=== PATIENT | female | born 1980 | race Caucasian/White ===

== ENCOUNTER → 2019-05-07 13:51 | Outpatient (CLI) | payer BC | END | disposition home or self-care (01) | LOC: D.HCCECHO 13:51 | PROVIDERS: ATTEND Internal Medicine Cardiovascular Disease | DX: I10 Essential (primary) hypertension (principal) ==

== ENCOUNTER → 2019-06-11 10:00 | Outpatient (CLI) | payer BC | END | disposition home or self-care (01) | LOC: D.HCCARDIO 05-28 11:30 | PROVIDERS: ATTEND Internal Medicine Cardiovascular Disease | DX: R06.02 Shortness of breath (principal) ==

== ENCOUNTER 2019-07-03 11:09 | Outpatient (CLI) | payer BC ==
[~2019-07-03] VITALS: Ht 167.6 cm; Wt 95.5 kg
--- NOTE | ~2019-07-03 | HEMODYNAMI ---
PATIENT:HARPREET RODRIGUEZ MEDICAL RECORD: [id number] : 78 LOCATION:[facility] ADMISSION DATE: 07/03/19 Generatedon:07/03/201914:36 Patient name: HARPREET RODRIGUEZ Patient #: [id number] SSN: [id number] : 1980 Date of study: 07/03/2019 Page: Of Hemodynamic Procedure Report Patient Data Patient Demographics Procedure consent was obtained First Name: HARPREET Gender: Female Last Name: MICHAEL : 1980 Patient #: [id number] Age: 38 year(s) Race: SSN: [id number] Additional ID: [id number] Contact details Address: [address] [place] [address] State: [place] [facility] Zip code: [address] Past Medical History Allergies Allergen Reaction Date Comments Reported Other allergy 07/03/2019 sulfar cefdinir Admission Admission Data Admission Date: 07/03/2019 Admission Time: 11:09 Arrival Date: 07/03/2019 Arrival Time: 0:00 Insurance Payor: Private health insurance Height (in.): 95.4 BSA: 2.42 (m2) Height (cm.): 242.32 BMI: 12.95 (kg/m2) Weight (lbs.): 167.64 Weight (kg.): 76.04 Lab Results Lab Result Date: 07/03/2019 Lab Result Time: 0:00 Biochemistry Name Units Result Min Max BUN mg/dl 14 --(--*-)-- 7 18 Creatinine mg/dl 0.9 --(-*--)-- 0.6 1.3 eGFR ml/min 73.33140 *-(----)-- 90 120 NONAFRICAN CBC Name Units Result Min Max Hematocrit % 40.7 -*(----)-- 42 54 Hemoglobin g/dl 13.2 -*(----)-- 13.5 17.5 Procedure Procedure Types Cath Procedure Diagnostic Procedure [facility] w/Coronaries Procedure Description Procedure Date Procedure Date: 07/03/2019 Procedure Start Time: 14:17 Procedure End Time: 14:35 Procedure Staff Name Function Yaron Knight MD Performing Physician Andree Calderon RT Monitor Jimmie Arevalo RN Nurse Daphne Heller RT Scrub Colton Moreno RT Scrub Indication Pulmonary hypertension Procedure Data Cath Procedure Fluoroscopy Diagnostic fluoroscopy Total fluoroscopy Time: 2 time: 2 min min Diagnostic fluoroscopy Total fluoroscopy dose: 367 dose: 367 mGy mGy Contrast Material Contrast Material Type Amount (ml) Isovue 370 60 Entry Location Entry Primary Successful Side Size Upsize Upsize Entry Closure Succes sful Closure Location (Fr) 1 (Fr) 2 (Fr) Remarks Device Remarks Femoral Right 5 Fr Exoseal artery Estimated blood loss: 5 ml Diagnostic catheters Device Type Used For End Catheter Placement MULTIPACK JL 4.0 5Fr Procedure catheter MULTIPACK 3DRC 5Fr Procedure catheter MULTIPACK Pigtail 5 Fr Procedure catheter Procedure Complications No complications Procedure Medications Medication Administration Route Dosage 0.9% NaCl I.V. 100 ml/hr Oxygen etCO2 Nasal cannula 2 l/min Heparin Flush Bag added to field 2 bags (1000units/500ml NS) Lidocaine 2% added to field 20 Versed I.V. 2 mg Fentanyl I.V. 100 mcg Versed I.V. 2 mg Fentanyl I.V. 100 mcg Versed I.V. 2 mg Versed I.V. 2 mg Versed I.V. 2 mg Hemodynamics Rest BSA: 2.42 (m2) HGB: 13.2 (g/dl) O2 Consumption: Estimated: 292.03 (ml/min) O2 Co nsumption indexed: Estimated:120.67 (ml/min/m) Heart Rate: 119 (bpm) Pressure Samples Time Site Value (mmHg) Purpose Heart Use Rate(bpm) 14:26 AO 130/-6(48) Snapshot 114 14:27 LV 122/-22,-6 Snapshot 120 14:27 AO 118/61(85) Pullback 110 14:27 LV 126/-19,-4 Pullback 110 Gradients Valve Time Site 1 Site 2 Mean SEP/DFP Peak To Heart Use (mmHg) (sec/min) Peak Rate (mmHg) (bpm) Aortic 14:27 LV AO 22 10 8 110 126/-19,-4 118/61(85) Calculations Valve P-P Mean Valve Index Valve Source Name Gradient Area Flow (cm2) Aortic 8 22 8 22 Snapshots Pre Cath Intra NCS Post Cath Vital Signs Time Heart Resp SPO2 etCO2 NIBP (mmHg) Rhythm Pain Sedation Rate (ipm) (%) (mmHg) Status Level (bpm) 14:03:00 129 18 100 0 158/100(142) NSR 0 (11) 10(A) , No pain 14:07:18 126 14 100 22 141/97(111) NSR 0 (11) 10(A) , No pain 14:11:35 126 19 100 33.4 146/88(108) NSR 0 (11) 10(A) , No pain 14:15:48 117 19 100 35 136/84(99) NSR 0 (11) 10(A) , No pain 14:19:58 100 18 98 37.2 140/77(95) NSR 0 (11) 10(A) , No pain 14:24:12 108 20 98 35 132/69(92) NSR 0 (11) 10(A) , No pain 14:28:20 116 21 100 33.4 127/74(96) NSR 0 (11) 10(A) , No pain 14:32:34 100 14 99 37.2 124/79(96) NSR 0 (11) 10(A) , No pain Medications Time Medication Route Dose Verified Delivered Reason Notes Eff ectiveness by by 14:08:37 0.9% NaCl I.V. 100 Jimmie Jimmie Per ml/hr Mickey Arevalo physician RN RN 14:09:22 Oxygen etCO2 2 Jimmie Jimmie for low 02 Nasal l/min Lorigan Lorigan sats cannula RN RN 14:09:34 Heparin Flush added 2 Jimmie Jimmie used for Bag to bags Lorigan Lorigan procedure (1000units/500ml field RN RN NS) 14:09:44 Lidocaine 2% added 20ml Jimmie Jimmie for local to vial Lorigan Lorigan anesthetic field RN RN 14:16:48 Versed I.V. 2 mg Jimmie Jimmie for Lorigan Lorigan sedation RN RN 14:16:56 Fentanyl I.V. 100 Jimmie Jimmie for mcg Lorigan Lorigan sedation RN RN 14:18:29 Versed I.V. 2 mg Jimmie Jimmie for Lorigan Lorigan sedation RN RN 14:18:34 Fentanyl I.V. 100 Jimmie Samuel for mcg Lorigan Lorigan sedation RN RN 14:19:56 Versed I.V. 2 mg Jimmieadalberto Samuel for Lorigan Lorigan sedation RN RN 14:20:23 Versed I.V. 2 mg Jimmie Jimmie for Lorigan Lorigan sedation RN RN 14:23:37 Versed I.V. 2 mg Jimmie Jimmie for Lorigan Lorigan sedation RN cashier ticket selling Log Time Note 13:51:58 Informed consent obtained and on chart 13:53:19 Indication : Pulmonary hypertension 13:53:26 Jimmie Arevalo RN sent for patient. Start room use. 13:53:30 Procedure Status Elective Heart Cath (OP). 13:54:21 Time tracking: Regular hours (M-F 7:00 - 5:00) 13:54:27 Plan of Care:Hemodynamics will remain stable., Cardiac rhythm will remain stable., Comfort level will be maintained., Respiratory function will remain adequate., Patient/ family verbilizes understanding of procedure., Procedure tolerated without complication., Recovers from procedure without complications.. 13:55:37 H&P Date Dictated: 07/03/2019 Within 30 days and on chart.. 13:55:40 Family in waiting room. 13:55:42 Patient NPO since Midnight. 13:55:48 Patient allergic to No known allergies 13:56:36 Lab Result : BUN 14 mg/dl 13:56:36 Lab Result : Creatinine 0.9 mg/dl 13:56:36 Lab Result : eGFR NONAFRICAN 73.42106 ml/min 13:56:36 Lab Result : Hematocrit 40.7 % 13:56:36 Lab Result : Hemoglobin 13.2 g/dl 13:56:49 Patient received from Pre/Post Procedure Room to CCL 1 Alert and oriented. Tansferred to table in Supine position. 13:56:50 Warm blankets applied, and darcy hugger turned on for patient comfort. 13:56:51 Correct patient and procedure confirmed by team. 13:56:54 ECG and BP/O2 sat monitors applied to patient. 13:56:59 Pre-procedure instructions explained to patient. 13:56:59 Pre-op teaching completed and patient verbalized understanding. 13:57:02 Is the patient allergic to Iodine/contrast media? No. 13:59:20 Risk of Mortality: .1 13:59:23 Risk of blood transfusion: .2 13:59:25 Risk of ETELVINA: .8 13:59:28 Sharps counted by scrub and verified by R.N. 13:59:29 Alarms reviewed by RLeigh N. 14:00:13 Arrival Date: 07/03/2019 12:00:00 AM 14:00:15 Insurance Payor : Private health insurance 14:00:43 Patient Height : 95.4 inches 14:00:47 Patient Weight : 167.64 lbs 14:01:21 Patient allergic to Other allergysulfar cefdinir 14:01:56 Vital chart was started 14:01:58 Full Disclosure recording started 14:07:06 Baseline sample Acquired. 14:07:10 Rhythm: sinus tachycardia 14:07:53 HCG/Urine : completed and on chart, negative 14:07:57 Patient diabetic? No. 14:08:00 If diabetic: On Metformin? N/A 14:08:03 Was the patient premedicated? Yes 14:08:09 Is patient on blood thinner?No 14:08:12 ----Pre-sedation anethsthesia assessment.---- 14:08:17 Previous problem with sedation/anesthesia? No ? 14:08:20 Snore? No 14:08:22 Sleep apnea? No 14:08:23 Deviated septum? No 14:08:24 Opens mouth fully? Yes 14:08:26 Sticks out tongue? Yes 14:08:30 Airway obstruction? Yes ASTHMA 14:08:33 Dentures? No ? 14:08:37 0.9% NaCl 100 ml/hr I.V. was administered by Jimmie Arevalo RN; Per physician; Verbal order read back and verified. 14:08:42 Pre procedure: right dorsailis pedis pulse 2+ Normal; easily identifiable; not easily obliterated 14:08:47 Patient pain scale 0/10 ?. 14:08:57 IV patent on arrival in left antecubital with 0.9% NaCl at [facility]. 14:09:03 Lab results completed and on chart. 14:09:11 Right groin area was prepped with chlora-prep and draped in sterile fashion 14:09:22 Oxygen 2 l/min etCO2 Nasal cannula was administered by Jimmie Arevalo RN; for low 02 sats; Verbal order read back and verified. 14:09:34 Heparin Flush Bag (1000units/500ml NS) 2 bags added to field was administered by Jimmie Arevalo RN; used for procedure; Verbal order read back and verified. 14:09:44 Lidocaine 2% 20ml vial added to field was administered by Jimmie Arevalo RN; for local anesthetic; Verbal order read back and verified. 14:12:27 --------ALL STOP TIME OUT------ 14:12:27 Final Timeout: patient, procedure, and site verified with staff and physician. All members of the team are in agreement. 14:12:29 Right groin site verified by team. 14:12:34 Fire Safety Assessment: A--An alcohol-based skin anteseptic being used preoperatively., C--Open oxygen or nitrous oxide is being used., D--An ESU, laser, or fiber-optic light is being used. 14:12:41 Physical assessment completed. ASA score P 1 - A normal healthy patient as per Yaron Knight MD. 14:12:45 2) 60-89 Mildly reduced kidney function, and other findings (as for stage 1) point to kidney disease. 14:12:49 Maximum allowable contrast dose (3.7 X eGFR X 0.75)205 ml. 14:12:54 Sedation plan: IV Moderate Sedation Medication:Versed, Fentanyl 14:12:59 Use device set Femoral Dx 14:13:01 ACIST Syringe (30590) opened to sterile field. 14:13:02 Bag Decanter () opened to sterile field. 14:13:03 Medline Cath Pack ([id number]) opened to sterile field. 14:13:04 ACIST Hand Control (93248) opened to sterile field. 14:13:05 ACIST Manifold (16111) opened to sterile field. 14:13:06 Tegaderm 4 x 4 (1626W) opened to sterile field. 14:13:08 SHEATH 5FR [place] (WWN800) opened to sterile field. 14:13:09 EMERALD Guide Wire (723-077) opened to sterile field. 14:13:14 DIAGNOSTIC Multipack 5Fr catheter set ([id number]) opened to sterile field. 14:16:48 Procedure started. 14:16:48 Versed 2 mg I.V. was administered by Jimmie Arevalo RN; for sedation; Verbal order read back and verified. 14:16:56 Fentanyl 100 mcg I.V. was administered by Jimmie Arevalo RN; for sedation; Verbal order read back and verified. 14:17:00 Local anesthetic to right femoral artery with Lidocaine 2% by Yaron Knight MD.INITIAL ACCESS ONLY 14:18:05 A 5 Fr sheath was inserted into the Right Femoral artery 14:18:29 Versed 2 mg I.V. was administered by Jimmie Arevalo RN; for sedation; Verbal order read back and verified. 14:18:34 Fentanyl 100 mcg I.V. was administered by Jimmie Arevalo RN; for sedation; Verbal order read back and verified. 14:19:46 A MULTIPACK JL 4.0 5Fr catheter was advanced over the wire and used for Procedure. 14:19:56 Versed 2 mg I.V. was administered by Jimmie Arevalo RN; for sedation; Verbal order read back and verified. 14:20:23 Versed 2 mg I.V. was administered by Jimmie Arevalo RN; for sedation; Verbal order read back and verified. 14:21:03 LCA angiography performed. 14:22:20 Catheter exchanged over wire. 14:22:45 A MULTIPACK 3DRC 5Fr catheter was advanced over the wire and used for Procedure. 14:23:37 Versed 2 mg I.V. was administered by Jimmie Arevalo RN; for sedation; Verbal order read back and verified. 14:23:58 RCA angiography performed. 14:24:57 ACCDominant side:Right 14:25:01 Catheter exchanged over wire. 14:25:43 A MULTIPACK Pigtail 5 Fr catheter was advanced over the wire and used for Procedure. 14:26:02 LV gram done using M[place]ELON[place] 14:26:04 Injector settings: Ml/sec: 10, Volume: 20, 14:27:16 LV hemodynamics recorded. 14:27:22 EF : 60 % 14:27:49 EXOSEAL 5Fr (EX500) opened to sterile field. 14:28:02 Sheath removed intact; hemostasis achieved with Exoseal to the Right Femoral artery. 14:29:25 Procedure ended.(Physican Out) 14:29:39 Fluoroscopy time 02.00 minutes. 14::43 Fluoroscopy dose: 367 mGy 14::43 Flurop Dose total: 367 14:29:51 Dose Area Product 82880 mGy/cm. 14:29:55 Maximum allowable dose exceeded? No. 14:29:57 Sharps counted by scrub and verified by R.N. 14:30:04 Contrast amount:Isovue 370 60ml. 14:30:17 Post-op/insertion site Right Femoral artery dressed using a 4 x 4 and Tegaderm. 14:30:20 Post Procedure Pulses reassessed and unchanged 14:30:24 Post procedure: right dorsailis pedis pulse 2+ Normal; easily identifiable; not easily obliterated. 14:30:29 Post-procedure physical assessment completed. ASA score P 1 - A normal healthy patient as per Yaron Knight MD. 14:30:41 Post procedure rhythm: sinus rhythm 14:30:44 Estimated blood loss: 5 ml 14:30:46 Post procedure instruction explained to patient.Patient verbalizes understanding. 14:30:47 Patient needs reinforcement of post procedure teaching. 14:31:00 [facility] Findings: mild to moderate CAD (<70%) 14:31:07 Procedure Complication : No complications 14:31:36 Procedure and supply charges have been captured, reviewed, submitted and are correct. 14:31:43 Operative report dictated upon procedure completion. 14:31:45 See physician's report for complete and final results. 14:31:46 Report given to Pre/Post Procedure Room. 14:31:51 Patient transfered to Pre/Post Procedure Room with Stretcher. 14:34:52 Vital chart was stopped 14:35:00 Procedure ended. 14:35:00 Full Disclosure recording stopped 14:35:04 End room use (Document Last) 14:35:19 End room use (Document Last) 14:35:36 End room use (Document Last) Device Usage Item Name Manufacture Quantity Catalog Hospital Part Current Minimal L ot# / Number Charge Number Stock Stock Serial# Code ACIST Acist 1 96750 [id number] 855971 489142 20 Syringe [employer] (07733) [employer] Inc Bag Microtek 1 538844 17361 062195 5 Decanter Medical Inc. () Medline Medline 1 [id number] 597281 59747 865770 5 Cath Pack ([id number]) ACIST Hand Acist 1 65247 054236 234863 396507 5 Control Medical (40772) Systems Inc ACIST Acist 1 46191 977447 052699 711314 5 Manifold Medical (72420) Systems Inc Tegaderm 4 3M 1 1626W 699011 194971 281959 5 x 4 (1626W) SHEATH 5FR Terumo 1 [id number] 955388 139521 715636 5 [place] (APT853) EMERALD Cardinal 1 502-455 968629 093138 906567 5 Guide Wire Health (502-455) DIAGNOSTIC Cardinal 1 ZT0118 383298 25244 844284 30 Multipack Health 5Fr catheter set (BM3774) MULTIPACK Cardinal 1 805092 5 JL 4.0 5Fr Health catheter MULTIPACK Cardinal 1 532700 5 3DRC 5Fr Health catheter MULTIPACK Cardinal 1 323458 5 Pigtail 5 Health Fr catheter EXOSEAL 5Fr Cardinal 1 EX500 059578 316524 741051 10 (EX500) Health Signature Audit [place] Stage Time Signature Unsigned Intra-Procedure 07/03/2019 Andree Calderon 2:35:19 PM RT(R) Intra-Procedure 07/03/2019 Jimmie 2:35:36 PM Mickey MURILLO Intra-Procedure 07/03/2019 Yaron Knight MD 2:35:58 PM [facility] [address] [place] [address]
[2019-07-03] MEDS ORDERED: TRIBENZOR 40-11 EAC1 PO (12:14)
[2019-07-03] MEDS ORDERED: MICROGESTIN FE1 EACH PO (12:15)
[2019-07-03] MEDS ORDERED: FEXOFENADINE H180 MG PO (12:15)
[2019-07-03] MEDS ORDERED: BENICAR20 MG PO (12:15)
[2019-07-03] MEDS ORDERED: CRESTOR10 MG PO (12:15)
[2019-07-03] MEDS ORDERED: COLACE100 MG PO (12:16)
[2019-07-03] MEDS ORDERED: BENADRYL50 MG PO (12:16)
[2019-07-03 12:28] VITALS: BP 128/85; Ht 167.6 cm; Wt 95.5 kg
[2019-07-03 12:47] LABS: BASOPHILS 0.3 % (0-2); EOSINOPHILS 2.5 % (0-7); HEMATOCRIT 40.7 % (36.0-48.0); HEMOGLOBIN 13.2 g/dL (12-16); IMMATURE GRANULOCYTES 0.4 % (0-5); LYMPHOCYTES 21.5 % (15-50); MCH 27.7 pg (26.0-34.0); MCHC 32.4 g/dL (31.0-37.0); MCV 85.5 fL (80.0-100.0); MEAN PLATELET VOLUME 8.8 fL (7.4-10.4); MONOCYTES 5.6 % (2-11); NEUTROPHILS 69.7 % (40-80); PLATELET COUNT 423 10x3/uL (130-400); RBC 4.76 10x6/uL (4.00-5.40); WBC 11.9 10x3/uL (4.8-10.8)
[2019-07-03 12:57] LABS: ANION GAP 14.7 mmol/L (8-16); CALCIUM 9.6 mg/dL (8.5-10.1); CARBON DIOXIDE 26.7 mmol/L (21.0-32.0); CREATININE - SERUM 0.9 mg/dL (0.6-1.3); POTASSIUM - SERUM 3.4 mmol/L (3.5-5.1)
[2019-07-03 13:12] LABS: HCG SERUM NEGATIVE (NEGATIVE)
--- NOTE | 2019-07-03 14:45 | NUR ---
PT RECEIVED VIA STRETCHER FROM [employer] FOR RECOVERY. PT AWAKE SLIGHTLY DROWSY. PT DENIES PAIN OR DISCOMFORT. IV PATENT INFUSING VIA ORDERS TO R AC. PT PLACED ON CARDIAC MONITORS, HR NSR 88, BP 120/77, RR 13, SAT 98 ON ROOM AIR. R GROIN W 5FR EXOCELE, DRESSING CDI NO BLEEDING OR S/S HEMATOMA NOTED. LEG PINK AND WARM, PEDAL PULSES PALPABLE. PT INSTRUCTED TO KEEP HEAD ON PILLOW AND LEG STRAIGHT, SHE VERBALIZED UNDERSTANDING. CALL LIGHT IN REACH, FAMILY AT BEDSIDE.
--- NOTE | 2019-07-03 15:15 | NUR ---
PT RESTING W/O COMPLAINTS. R GROIN SOFT, DRESSING CDI NO BLEEDING OR S/S HEMATOMA NOTED. PEDAL PULSES PALPABLE. TOLERATING PO FLUIDS. CALL LIGHT IN REACH, FAMILY AT BS.
--- NOTE | 2019-07-03 15:37 | NUR ---
HOB ELEVATED SLIGHTLY. GROIN SOFT AND NO S/S BLEEDING OR SWELLING.
--- NOTE | 2019-07-03 16:04 | NUR ---
PT RESTING COMFORTABLY W/O COMPLAINTS. R GROIN SOFT, DRESSING REMAINS CDI NO BLEEDING OR SWELLING NOTED. HR 88, BP 110/63, RR 10, SAT 98 ON ROOM AIR. PEDAL PULSES PALPABLE. FAMILY AT BEDSIDE, CALL LIGHT IN REACH
--- NOTE | 2019-07-03 16:48 | NUR ---
DISCHARGE INSTRUCTIONS REVIEWED W PT AND , BOTH VERBALIZED UNDERSTANDING. R GROIN REMAINS SOFT, NO BLEEDING OR S/S HEMATOMA NOTED. IV REMOVED W CATH INTACT, MONITORS REMOVED. PT UP TO DRESS FOR DISCHARGE.
--- NOTE | 2019-07-03 16:55 | NUR ---
PT AMBULATED TO BR, VOIDING W/O DIFFICULITY. 1700 PT DISCHARGED VIA WC TO WAITING IN PRIVATE VEHICLE. PT HAD ALL BELONGINGS AND DISCHARGE FOLDER
== END 2019-07-03 17:00 | disposition home or self-care (01) ==
LOC: D.CATH 11:09
PROVIDERS: ATTEND Internal Medicine Cardiovascular Disease
DX: R94.30 Abnormal result of cardiovascular function study, unspecified (principal); R06.02 Shortness of breath; I20.9 Angina pectoris, unspecified; I10 Essential (primary) hypertension; E78.5 Hyperlipidemia, unspecified; R06.09 Other forms of dyspnea